=== PATIENT | female | born 1965 | race African-American/Black ===

== ENCOUNTER → 2016-05-25 | Outpatient (REF) | payer MEDICAID, SELFPAY | LOC: M SFHCLERA 15:46 | PROVIDERS: ATTEND Physician Assistant | DX: M79.604 Pain in right leg (principal) ==

== ENCOUNTER → 2016-05-25 | Outpatient (CLI) | payer MEDICAID ==
--- NOTE | 2016-05-25 15:19 | REP ---
Right tibia-fibula two views: There are no comparisons. There are healed fractures of the distal shafts of the tibia and fibula. The lucent fracture line persists in the tibial fracture. There are no lytic or destructive changes. No evidence of acute fracture. Signed by German Miner MD 05/25/2016 03:11 P
--- NOTE | 2016-05-25 15:23 | REP ---
RIGHT ANKLE, FOUR VIEWS: HISTORY: Pain. There is no acute fracture or dislocation. There are old healed fractures of the distal tibia and fibula. The joint space is normal in appearance. An osteophyte is present on the inferior calcaneus. IMPRESSION: There is no acute fracture or dislocation. Signed by Beck Miller MD 05/25/2016 03:34 P
== END ==
LOC: M LRY 14:17
PROVIDERS: ATTEND Physician Assistant
DX: M79.604 Pain in right leg (principal)

== ENCOUNTER → 2016-06-13 | Outpatient (REF) | payer MEDICAID | LOC: M SFHCLERA 14:48 | PROVIDERS: ATTEND Family Medicine | DX: E78.00 Pure hypercholesterolemia, unspecified (principal) ==

== ENCOUNTER → 2016-06-14 | Outpatient (REF) | payer MEDICAID | LOC: M SFHCLERA 08:18 | PROVIDERS: ATTEND Family Medicine | DX: E78.00 Pure hypercholesterolemia, unspecified (principal) ==

== ENCOUNTER → 2016-06-30 | Outpatient (REF) | payer MEDICAID ==
[2016-06-30 19:07] LABS: ALBUMIN 3.8 GM/DL (3.2-5.2); ALBUMIN/GLOBULIN RATIO 0.97 (1.00-1.93); ALKALINE PHOSPHATASE 120 U/L (45-117); ALT/SGPT 20 U/L (12-78); ANION GAP 9 MEQ/L (8-16); AST/SGOT 23 U/L (15-37); BILIRUBIN,TOTAL 0.4 MG/DL (0.2-1.0); BLOOD UREA NITROGEN 14 MG/DL (7-18); CALCIUM LEVEL 8.3 MG/DL (8.5-10.1); CARBON DIOXIDE LEVEL 25 MEQ/L (21-32); CHLORIDE LEVEL 108 MEQ/L (98-107); CHOLESTEROL LEVEL 225 MG/DL (<200); CREATININE FOR GFR 0.69 MG/DL (0.55-1.02); FREE T4 1.17 NG/DL (0.76-1.46); GLOMERULAR FILTRATION RATE > 60.0 (>51); GLUCOSE, FASTING 87 MG/DL (70-105); SODIUM LEVEL 142 MEQ/L (136-145); TOTAL PROTEIN 7.7 GM/DL (6.4-8.2); TRIGLYCERIDES LEVEL 70 MG/DL (<150)
[2016-06-30 19:16] LABS: MEAN CORPUSCULAR HEMOGLOBIN 29.2 pg (27.0-33.0); MEAN CORPUSCULAR HGB CONC 33.1 g/dl (32.0-36.5); MEAN CORPUSCULAR VOLUME 88.3 fl (80.0-96.0); RED CELL DISTRIBUTION WIDTH 13.7 % (11.5-14.5); WHITE BLOOD COUNT 6.9 K/mm3 (4.0-10.0)
== END ==
LOC: M SFHCLERA 10:25
PROVIDERS: ATTEND Family Medicine
DX: E78.00 Pure hypercholesterolemia, unspecified (principal)

== ENCOUNTER → 2016-07-15 | Outpatient (CLI) | payer MEDICAID, SELFPAY ==
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
== END ==
LOC: M PLARAD 07:48
PROVIDERS: ATTEND Family Medicine
DX: M25.551 Pain in right hip (principal); M79.604 Pain in right leg; W34.00XA Accidental discharge from unspecified firearms or gun, initial encounter; Y92.89 Other specified places as the place of occurrence of the external cause; Y93.89 Activity, other specified; Y99.8 Other external cause status

== ENCOUNTER → 2016-07-27 | Outpatient (REF) | payer MEDICAID, SELFPAY | LOC: M SFHCLERA 11:40 | PROVIDERS: ATTEND Family Medicine | DX: R59.1 Generalized enlarged lymph nodes (principal); R59.0 Localized enlarged lymph nodes ==

== ENCOUNTER → 2016-08-10 | Outpatient (CLI) | payer MEDICAID ==
[~2016-08-10] MED LIST: GASTROGRAFIN SOLUTION 30ML (Q9963) As Ordered ONE; ISOVUE-370 76% 100ML VIAL (Q9967) As Ordered ONE
--- NOTE | 2016-08-10 12:35 | REP ---
CT CHEST WITH IV CONTRAST: TECHNIQUE: Axial contrast enhanced images from the thoracic inlet to the upper abdomen using 100 mL Isovue 370 intravenous contrast material with multiplanar reformations. The lungs show scattered interstitial fibrotic change without suspicious nodular opacity or consolidation. No adenopathy is seen in the mediastinal, hilar or axillary regions. There are normal sized lymph nodes present. There is no thoracic aortic aneurysm or dissection. Heart is normal in size. There is no pleural or pericardial effusion. There are mild degenerative changes of the spine. IMPRESSION: No suspicious nodule or adenopathy. Signed by German So MD 08/11/2016 05:09 P
--- NOTE | 2016-08-10 13:44 | REP ---
CT ABDOMEN AND PELVIS WITH AND WITHOUT CONTRAST: TECHNIQUE: Axial noncontrast images through the abdomen followed by contrast-enhanced images through the abdomen and pelvis using 100 mL Isovue 370 intravenous contrast material, with coronal and sagittal reformations. Liver, spleen, adrenals and pancreas are unremarkable in appearance. There is a cyst in the upper pole of each kidney. There is no hydronephrosis or nephrolithiasis. There appears to be postsurgical scarring in the superficial soft tissues of the left flank with focal cortical thinning and irregularity in the lower pole of the left kidney, presumably postsurgical findings. No mass is seen in the lower pole of the left kidney. There is no abdominal aortic aneurysm. There are normal sized periaortic lymph nodes in the abdomen. In the pelvis, an enlarged left external iliac lymph node oval in shape measures 2.9 x 1.7 cm. A mildly enlarged left external iliac node more inferiorly measures 1.3 cm in short axis dimension. There are a few subcentimeter lymph nodes in the left inguinal region. A dominant enlarged lymph node in the left inguinal region measures 3.2 x 3.1 cm. There are a couple of lymph nodes in the right external iliac region up to 1 cm in short axis dimension. An enlarged right inguinal lymph node measures 2.2 x 2.1 cm. Several other subcentimeter lymph nodes are seen in the right inguinal region with one mildly enlarged lymph node 1.2 cm in short axis. The appendix is normal. There appears to have been prior surgery in the region of the rectosigmoid colon. At that location, there appears to be a diverticulum on the right with surgical sutures seen along it. This portion of the sigmoid colon appears mildly thickened. In addition, there appears to be a small adjacent fluid collection measuring approximately 2.5 x 1.6 cm. The urinary bladder is not well distended and not well evaluated. No free air is seen. There is no free fluid. L5 vertebral body is diffusely sclerotic with erosive changes at the superior and inferior end plates. There is also diffuse sclerosis of S1 and L4, with erosive changes at the inferior end plate of L4 and the superior end plate of S1. There is associated disc space narrowing at both of these levels. IMPRESSION: Pelvic and inguinal adenopathy as discussed in detail above. 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 There are surgical sutures in this portion of the wall of the rectosigmoid colon. There is an adjacent fluid collection just posterior to this measuring 2.5 x 1.6 cm, of uncertain significance. Underlying seroma or abscess cannot be excluded. There are no prior studies for comparison. Sclerotic arthropathy at L4-5 and L5-S1. Please note that the rectosigmoid thickening could be the result of inflammatory change versus neoplasm. Recommend direct visualization. Signed by German So MD 08/11/2016 05:09 P
== END ==
LOC: M RAD 09:25
PROVIDERS: ATTEND Family Medicine
DX: R59.0 Localized enlarged lymph nodes (principal); R59.1 Generalized enlarged lymph nodes
CPT/HCPCS: 71260; 74178; Q9963; Q9967